=== PATIENT | female | born 1975 | race Caucasian/White ===

== ENCOUNTER → 2024-01-11 15:08 | Outpatient (REF) | payer BC, SELFPAY | LOC: RCS 15:08 | PROVIDERS: ATTENDING PHYSICIAN Internal Medicine Interventional Cardiology; FAMILY PHYSICIAN Nurse Practitioner Adult Health | DX: I10 Essential (primary) hypertension (principal) | CPT/HCPCS: 93306 ==

== ENCOUNTER 2024-09-03 15:48 | Emergency (ER) | payer BC, SELFPAY ==
[2024-09-03 15:52] VITALS: BP 124/89
[2024-09-03 16:29] LABS: % Basophils 0.3 % (0-2); % Eosinophils 0.3 % (0-6); % Immature Granulocytes 0.6 % (0-0.5); % Lymphocytes 5.5 % (20.5-51.1); % Monocytes 6.4 % (1.7-9.3); % Neutrophils 86.9 % (42.2-75.2); Absolute Immature Granulocytes 0.1 10^3/uL (0-0.05); Absolute Lymphocytes 0.6 10^3/uL (1.2-3.4); Absolute Monocytes 0.7 10^3/uL (0.1-0.6); Absolute Neutrophils 9.9 10^3/uL (1.4-6.5); Hematocrit 36.4 % (37.0-47.0); Hemoglobin 12.6 g/dL (12.0-16.0); Mean Corp Hgb Conc. 34.6 g/dL (33.0-37.0); Mean Corpuscular Hgb 31.3 pg (27.0-31.0); Mean Corpuscular Volume 90.5 fL (81.0-99.0); Mean Platelet Volume 8.7 fL (7.4-10.4); Nucleated Red Blood Cells % 0 %; Platelet Count 202 10^3/uL (130-400); Red Blood Cell Count 4.02 10^6/uL (4.20-5.40); Red Cell Dist. Width 12.2 % (11.5-14.5); White Blood Cell Count 11.4 10^3/uL (4.8-10.8)
[2024-09-03 16:32] LABS: Lactic Acid 0.7 mmol/L (0.7-2.0)
[2024-09-03 16:33] LABS: ALT (SGPT) 12 U/L (0-35); AST (SGOT) 19 U/L (14-36); Albumin 3.2 g/dl (3.5-5.0); Alkaline Phosphatase 75 U/L (38-126); Blood Urea Nitrogen 12 mg/dl (7-17); Calcium 8.4 mg/dl (8.4-10.2); Carbon Dioxide 32 mmol/L (22-30); Chloride 97 mmol/L (98-107); Glucose 162 mg/dl (70-99); Lipase 26 U/L (23-300); Sodium 133 mmol/L (135-145); Total Bilirubin 0.5 mg/dl (0.2-1.3); Total Protein 5.6 g/dl (6.3-8.2); eGFR > 60.00
--- NOTE | 2024-09-03 18:20 | ED.GENMED ---
History of Present Illness
General
Chief Complaint: Abdominal Pain
Source: patient
Exam Limitations: none
Time Seen by Provider: 09/03/24 17:52
History of Present Illness
History of Present Illness:
48-year-old female presents with abdominal pain and diarrhea worsening over the past 2 to 3 days. Prior to the onset of her diarrhea she was taking amoxicillin and steroid for a sinus infection. She is healthy otherwise. She is BRCA2 positive and
had double mastectomy and is status post reconstruction. She notes pain in her abdomen is in the lower abdomen. She notes associated headache and some nausea no significant vomiting. She denies any blood in the stool. Patient does tell me 20
years ago she had an episode of ischemic colitis. This was thought to be related to her oral contraceptive she was taking. No other complaints at this time
Phy Exam
Physical Exam
Physical Exam:
General: Well-appearing female no acute respiratory distress
HEENT: Normocephalic atraumatic
Heart: Regular rate and rhythm
Lungs: Clear no wheeze
Abdomen is soft mildly tender to the lower abdomen bilaterally no guarding or rebound tenderness
Extremities: No cyanosis
Course
Orders/Labs/Results
Orders:
Orders
09/03/24 15:57
Electrocardiogram (*1) Urgent
Reason for Study: Palpitations
09/03/24 15:58
EKG- Treatment ONCE
09/03/24 16:08
Complete Blood Count/With Diff Urgent
Comprehensive Metabolic Panel Urgent
Lactic Acid Urgent
Lipase Urgent
C difficile Antigen & Toxins Urgent
GABRIEL Source: Feces/Stool
Specimen Description:
Date Specimen was Collected: 09/03/24
Time Specimen was Collected: 15:59
Norovirus by PCR Urgent
GABRIEL Source: Feces/Stool
Specimen Description:
Date Specimen was Collected: 09/03/24
Time Specimen was Collected: 15:59
Stool Culture Urgent
GABRIEL Source: Feces/Stool
Specimen Description:
Date Specimen was Collected: 09/03/24
Time Specimen was Collected: 15:59
09/03/24 18:15
0.9% Sodium Chloride 1000 ml [Nss] 1,000 ml IV BOLUS
Diphenhydramine [Benadryl] 25 mg IV NOW STA
Potassium Chloride Powder [Klor-Con] 20 meq PO NOW STA
Prochlorperazine [Compazine] 10 mg IV NOW STA
09/03/24 18:52
CT Abd/pel W Iv And Oral Contr Urgent
Comment:
Reason For Exam: abdominal pain, diarrhea
Lactic Acid Urgent
Iohexol [Omnipaque] See Protocol PO NOW STA
09/03/24 21:54
Vancomycin HCl [Firvanq] 125 mg PO NOW STA
Abnormal Lab Results
09/03/24
16:08
WBC 11.4 H 10^3/uL
(4.8-10.8)
RBC 4.02 L 10^6/uL
(4.20-5.40)
Hct 36.4 L %
(37.0-47.0)
MCH 31.3 H pg
(27.0-31.0)
Abs Immat Gran (auto) 0.1 H 10^3/uL
(0-0.05)
Absolute Neuts (auto) 9.9 H 10^3/uL
(1.4-6.5)
Absolute Lymphs (auto) 0.6 L 10^3/uL
(1.2-3.4)
Absolute Monos (auto) 0.7 H 10^3/uL
(0.1-0.6)
Immature Gran % 0.6 H %
(0-0.5)
Neutrophils % 86.9 H %
(42.2-75.2)
Lymphocytes % 5.5 L %
(20.5-51.1)
Sodium 133 L mmol/L
(135-145)
Potassium 3.0 L mmol/L
(3.5-5.1)
Chloride 97 L mmol/L
(98-107)
Carbon Dioxide 32 H mmol/L
(22-30)
Glucose 162 H mg/dl
(70-99)
Total Protein 5.6 L g/dl
(6.3-8.2)
Albumin 3.2 L g/dl
(3.5-5.0)
09/03/24 16:08
09/03/24 16:08
Vital Signs
Initial and Last Documented VS:
Initial Vital Signs
Temp Pulse Resp BP Pulse Ox
98.5 F 103 16 124/89 98
09/03/24 15:52 09/03/24 15:52 09/03/24 15:52 09/03/24 15:52 09/03/24 15:52
Last Documented Vital Signs
Temp Pulse Resp BP Pulse Ox
98.5 F 76 15 112/77 99
09/03/24 15:52 09/03/24 20:30 09/03/24 20:30 09/03/24 20:04 09/03/24 20:30
MDM/Problems Addressed
Differential Diagnosis Includes:
Abdominal pain with diarrhea. Recent antibiotic use. Consider colitis versus C. difficile versus electrolyte abnormality.
Patient did have a CT scan of her abdomen with oral contrast earlier today. This was done at [facility]. The was able to pull up a report on his computer. The report suggested pancolitis without bowel obstruction. And there is
questionable small foci of extraluminal air about the large bowel loops in the mid to right lower abdomen concerning for possible perforation.
Patient does not examine as an acute perforation given her soft abdomen no guarding or rebound tenderness. There is some tenderness to the lower abdomen which would be consistent with her colitis.
Fluids ordered treated symptoms.
*Critical Care Note
Total Time (30-74mins, 75-104mins- exclusive of procedures): Not Applicable
Update Note
Update Note:
CT suggestive of severe acute pancolitis likely infectious in nature. This is consistent with patient's history of C. difficile. There is no evidence of perforation on today's CAT scan. Patient's symptoms are improved after treatment here. She
was hydrated. Potassium was replaced. Shared decision making occurred with patient and family regarding treatment options from this point [facility] admission for continued hydration and vancomycin for C. difficile for oral vancomycin at home.
She opted to go home. Return precautions were. Vancomycin started. Also advised potassium supplementation over the next 4 days if her diarrhea persists
ED Attending Note
-
Portions of this chart may have been created with voice recognition software.� Occasional wrong word or��sound alike� substitutions may have occurred due to the inherent limitations of voice recognition software.
Discharge Plan
Departure
Patient Disposition: Home (Routine Discharge)
Date of Disposition: 09/03/24
Time of Disposition: 22:01
Patient with high blood pressure during this ER visit?: No
Discharge Problem:
Clostridium difficile colitis
Instructions: C. difficile infection - ED discharge instructions
Prescriptions:
New
vancomycin 125 mg capsule
125 mg PO QID Qty: 40 0RF
Referrals:
Marly Alanis CRNP [Family Provider] -
Activity Restrictions/Additional Instructions:
Stay hydrated. If diarrhea persist, continue 20 mill equivalents of potassium daily for the next 5 days. Take vancomycin as directed. Return here for increasing pain fever vomiting or other concerning finding.
Interventions
Interventions:
*Risk Screen - Suicide Last Done: 09/03/24 20:00
*General Assessment Last Done: 09/03/24 19:00
*Neglect/Abuse Screening Last Done: 09/03/24 20:00
*ED- Fall Risk Assessment Last Done: 09/03/24 19:00
*ED COVID-19 Vaccine History Last Done: 09/03/24 19:00
TG-Gfflzc-Wpewuzkdhc Assessment Last Done: 09/03/24 20:00
Discharge Date and Time
Print Language: BRAZILIAN
[2024-09-03] MEDS: NSS 1000 IV (18:47)
[2024-09-03] MEDS: COMPAZINE 10 MG IV (18:48)
[2024-09-03] MEDS: BENADRYL 25 MG IV (18:49)
[2024-09-03] MEDS: KLOR-CON 20 MEQ PO (18:50)
[2024-09-03] MEDS: OMNIPAQUE 50 ML PO (18:57)
[2024-09-03 19:00] VITALS: BMI 20.2
[2024-09-03 19:10] LABS: Lactic Acid 0.8 mmol/L (0.7-2.0)
[2024-09-03 20:04] VITALS: BP 112/77
[2024-09-03 22:50] VITALS: BP 102/65
[2024-09-03] MEDS: FIRVANQ 125 MG PO (22:51)
== END 2024-09-03 23:00 | disposition home or self-care (01) ==
LOC: EMR 15:48
PROVIDERS: Physician Assistant; EMERGENCY PHYSICIAN Emergency Medicine; FAMILY PHYSICIAN Nurse Practitioner Adult Health
DX: A04.72 Enterocolitis due to Clostridium difficile, not specified as recurrent (principal); Z15.01 Genetic susceptibility to malignant neoplasm of breast; Z90.13 Acquired absence of bilateral breasts and nipples
CPT/HCPCS: 99284; 96374; 96375; 96361; 74177; 80053; 83605; 83690; 85025; 87045; 87046; 87324; 87427; 87449; 87798; 93005; Q9967